=== PATIENT | female | born 1985 | race American Indian/Alaskan Native ===

== ENCOUNTER 2019-05-05 23:02 | Emergency (ER) | payer SELFPAY ==
[2019-05-06 00:09] LABS: Hematocrit 36.3 % (30.3-42.9); Hemoglobin 12.3 gm/dl (10.1-14.3); Mean Corpuscular HGB Conc 34 % (30-34); Mean Corpuscular Volume 81 fl (79-97); Platelet Count 247 K/mm3 (140-440); Red Cell Distribution Width 17.3 % (13.2-15.2)
[2019-05-06 00:13] LABS: Bacteria,Urine 4+ /HPF (Negative); Bilirubin,Urine SM (Negative); Blood,Urine LG (Negative); Color,Urine Amber (Yellow); Mucus,Urine 3+ /HPF
[2019-05-06 00:22] LABS: Alanine Aminotransferase 152 units/L (7-56); Albumin 3.9 g/dL (3.9-5); BUN/Creatinine Ratio 19; Blood Urea Nitrogen 13 mg/dL (7-17); Calcium 9.3 mg/dL (8.4-10.2); Hemolysis Index 25
[2019-05-06 00:29] LABS: Ictotest,Urine Positive (Negative)
[2019-05-06] MEDS ORDERED: ATIVAN IV ONE (00:35)
[2019-05-06] MEDS ORDERED: HALDOL IV ONE (00:35)
[2019-05-06] MEDS ORDERED: PROTONIX IV ONE (00:37)
[2019-05-06] MEDS ORDERED: NACL 0.9% 1000 ML 1,000 ML IV ONE (00:38)
--- NOTE | 2019-05-06 00:41 | Emergency Department Report ---
ED Abdominal Pain HPI - General Chief Complaint: Abdominal Pain Stated Complaint: ANXIETY Time Seen by Provider: 05/06/19 00:34 Source: patient, EMS Mode of arrival: Ambulatory Limitations: No Limitations - History of Present Illness Initial Comments: Mrs. Doyle is a 33 year old patient with past medical history of gastroparesis and anxiety who presents with diffuse abdominal pain for the past 5 days. She is followed by GI specialist at [facility]. She was recently evaluated at [facility] 2 days ago. She takes Ativan. She is unable to recall the remainder of her medications. Diffuse abdominal pain. Positive nausea. Typical symptoms for gastroparesis episodes. MD Complaint: abdominal pain -: Gradual, days(s) (5) Location: diffuse Severity: severe Quality: cramping Consistency: constant Improves With: nothing Worsens With: nothing Context: other (hx of gastroparesis) Associated Symptoms: nausea - Related Data Previous Rx's Medication Instructions Recorded Last Taken Type Dicyclomine [Bentyl] 20 mg PO QID #20 tablet 08/30/16 Unknown Rx HYDROcodone/APAP 7.5-325 [[place] 1 each PO Q6HR PRN #20 tablet 08/30/16 Unknown Rx 7.5/325] Metoclopramide [Reglan TAB] 10 mg PO TID PRN #30 tab 08/30/16 Unknown Rx Metoclopramide [Reglan] 10 mg PO TID 15 Days #45 tab 05/06/19 Unknown Rx Potassium Chloride [K-Dur] 20 meq PO DAILY 30 Days #30 tab 05/06/19 Unknown Rx Allergies Allergy/AdvReac Type Severity Reaction Status Date / Time No Known Allergies Allergy Unverified 03/07/16 11:13 ED Review of Systems ROS: Stated complaint: ANXIETY Other details as noted in HPI Comment: All other systems reviewed and negative Constitutional: denies: fever, malaise Gastrointestinal: abdominal pain, nausea ED Past Medical Hx - Past Medical History Previous Medical History?: Yes Hx Psychiatric Treatment: Yes (Anxiety) Additional medical history: gastroparesis - Surgical History Past Surgical History?: Yes Hx Cholecystectomy: Yes (2011) - Social History Smoking Status: Never Smoker Substance Use Type: None - Medications Home Medications: Home Medications Medication Instructions Recorded Confirmed Last Taken Type Dicyclomine [Bentyl] 20 mg PO QID #20 tablet 08/30/16 Unknown Rx HYDROcodone/APAP 7.5-325 [[place] 1 each PO Q6HR PRN #20 tablet 08/30/16 Unknown Rx 7.5/325] Metoclopramide [Reglan TAB] 10 mg PO TID PRN #30 tab 08/30/16 Unknown Rx Metoclopramide [Reglan] 10 mg PO TID 15 Days #45 tab 05/06/19 Unknown Rx Potassium Chloride [K-Dur] 20 meq PO DAILY 30 Days #30 tab 05/06/19 Unknown Rx ED Physical Exam - General Limitations: No Limitations General appearance: alert, other (appears uncomfortable, pacing room, hyperventilating) - Head Head exam: Present: atraumatic, normocephalic - Eye Eye exam: Present: normal appearance - ENT ENT exam: Present: mucous membranes dry - Neck Neck exam: Present: normal inspection, full ROM - Respiratory Respiratory exam: Present: normal lung sounds bilaterally. Absent: respiratory distress, wheezes, rales, rhonchi - Cardiovascular Cardiovascular Exam: Present: normal rhythm, tachycardia, normal heart sounds. Absent: systolic murmur, diastolic murmur, rubs, gallop - GI/Abdominal GI/Abdominal exam: Present: soft, normal bowel sounds. Absent: distended, tenderness, guarding, rebound - Extremities Exam Extremities exam: Present: normal inspection - Back Exam Back exam: Present: normal inspection - Neurological Exam Neurological exam: Present: alert, oriented X3 - Psychiatric Psychiatric exam: Present: agitated, anxious - Skin Skin exam: Present: warm, dry, intact, normal color. Absent: rash ED Course Vital Signs 05/05/19 05/06/19 05/06/19 23:36 01:19 02:33 Temperature 97.3 F L Pulse Rate 115 H 99 H 96 H Respiratory 18 20 17 Rate Blood Pressure 150/100 Blood Pressure 159/80 147/99 [Left] O2 Sat by Pulse 97 96 98 Oximetry 05/06/19 03:45 Temperature Pulse Rate 92 H Respiratory 12 Rate Blood Pressure Blood Pressure 165/76 [Left] O2 Sat by Pulse 98 Oximetry ED Medical Decision Making - Lab Data Result diagrams: 05/05/19 23:45 05/05/19 23:45 - Medical Decision Making Mrs. Main presents with abdominal pain nausea vomiting for the past 5 days. Recently evaluated at [facility]. Labs reviewed notable for mild hypokalemia at 2.8. She received IV fluid, IV haloperidol, IV lorazepam, IV Protonix with improvement of symptoms. Vital signs stable and normal prior to discharge. She received prescription for reglan and potassium chloride. Critical care attestation.: If time is entered above; I have spent that time in minutes in the direct care of this critically ill patient, excluding procedure time. ED Disposition Clinical Impression: Gastroparesis, Abdominal pain, Anxiety Disposition: TO HOME OR SELFCARE Is pt being admited?: No Does the pt Need Aspirin: No Condition: Stable Instructions: Abdominal Pain (ED), Acute Nausea and Vomiting (ED) Prescriptions: Potassium Chloride [K-Dur] 20 meq PO DAILY 30 Days #30 tab Metoclopramide [Reglan] 10 mg PO TID 15 Days #45 tab Referrals: [facility] [Outside] - 3-5 Days
[2019-05-06] MEDS ORDERED: ATIVAN IM STA (00:42)
[2019-05-06 01:16] LABS: Amphetamine Screen,Urine PRESUMPTIVE NEGATIVE; Benzodiazepines Screen,Urine PRESUMPTIVE NEGATIVE; Cocaine Screen,Urine PRESUMPTIVE NEGATIVE; Methadone Screen,Urine PRESUMPTIVE NEGATIVE; Opiate Screen,Urine PRESUMPTIVE NEGATIVE
[2019-05-06 01:40] LABS: Cannabinoid Screen,Urine PRESUMPTIVE POSITIVE
[2019-05-06 03:45] VITALS: BP 165/76
== END 2019-05-06 04:21 | disposition home or self-care (01) ==
LOC: ED 23:02
DX: K31.84 Gastroparesis (principal); F41.9 Anxiety disorder, unspecified
CPT/HCPCS: 36415; 80053; 80307; 81001; 84703; 85025; 87086; 96361; 96372; 96374; 96375; 99284; C9113; J1630; J2060; J7030